=== PATIENT | male | born 1965 | race Caucasian/White ===

== ENCOUNTER 2025-03-19 08:57 | Emergency (ER) | payer OTHER ==
[2025-03-19 09:05] VITALS: RESP 18
--- NOTE | 2025-03-19 09:18 | ED ---
General Adult HPI - General Chief complaint: Abdominal Pain Stated complaint: abd pain Time Seen by Provider: 03/19/25 09:00 Source: patient, family, RN notes reviewed, old records reviewed Mode of arrival: ambulatory Limitations: no limitations - History of Present Illness Initial comments: This is a 59-year-old male who presents to the emergency department stating at 1:00 in the morning he woke up with right lower quadrant and right flank abdominal pain. Patient states it was not there when he went to bed. Patient states he was nauseous earlier but no longer. Patient denies any diarrhea. Patient states he feels constipated. Patient denies any fever chills or cough. Patient denies any hematuria or dysuria. Patient states he feels like he has urgency he in the sense he needs to go but cannot go very much. Patient states he has never had any prostate problems until this point. - Related Data Previous Rx's Medication Instructions Recorded Ketorolac [Toradol] 10 mg PO Q8HR #15 tab 03/19/25 Tamsulosin [Flomax] 0.4 mg PO DAILY #10 cap 03/19/25 Allergies Allergy/AdvReac Type Severity Reaction Status Date / Time No Known Allergies Allergy Verified 03/19/25 09:05 Review of Systems ROS Statement: Those systems with pertinent positive or pertinent negative responses have been documented in the HPI. ROS Other: All systems not noted in ROS Statement are negative. Past Medical History Past Medical History: Hypertension Past Surgical History: Cholecystectomy Past Psychological History: No Psychological Hx Reported Smoking Status: Never smoker Past Alcohol Use History: Occasional Past Drug Use History: None Reported General Exam - General Exam Comments Initial Comments: GENERAL: Patient is well-developed and well-nourished. Patient is nontoxic and well- hydrated and is in mild distress. ENT: Neck is soft and supple. No significant lymphadenopathy is noted. Oropharynx is clear. Moist mucous membranes. Neck has full range of motion without eliciting any pain. EYES: The sclera were anicteric and conjunctiva were pink and moist. Extraocular movements were intact and pupils were equal round and reactive to light. Eyelids were unremarkable. PULMONARY: Unlabored respirations. Good breath sounds bilaterally. No audible rales rhonc hi or wheezing was noted. CARDIOVASCULAR: There is a regular rate and rhythm without any murmurs gallops or rubs. ABDOMEN: Patient has right lower quadrant abdominal tenderness and a little right flank tenderness however there is no rebound SKIN: Skin is clear with no lesions or rashes and otherwise unremarkable. NEUROLOGIC: Patient is alert and oriented x3. Cranial nerves II through XII are grossly intact. Motor and sensory are also intact. Normal speech, volume and content. Symmetrical smile. MUSCULOSKELETAL: Normal extremities with adequate strength and full range of motion. No lower extremity swelling or edema. No calf tenderness. LYMPHATICS: No significant lymphadenopathy is noted PSYCHIATRIC: Normal psychiatric evaluation. Limitations: no limitations Course Vital Signs 03/19/25 03/19/25 09:03 09:13 Temperature 97.9 F 99.2 F Pulse Rate 64 Respiratory 18 Rate Blood Pressure 226/95 O2 Sat by Pulse 98 Oximetry Medical Decision Making - Medical Decision Making Was pt. sent in by a medical professional or institution (, ANGE, BARBERING TEACHER, urgent care, hospital, or detention...) When possible be specific @ -No Did you speak to anyone other than the patient for history (EMS, parent, family, police, friend...)? What history was obtained from this source @ -No Did you review nursing and triage notes (agree or disagree)? Why? @ -I reviewed and agree with nursing and triage notes Were old charts reviewed (outside hosp., previous admission, EMS record, old EKG, old radiological studies, urgent care reports/EKG's, detention records)? Report findings @ -No old charts were reviewed Differential Diagnosis? @ -Differential Abdominal Pain Men: Appendicitis, cholecystitis, diverticulosis, ischemic bowel, pancreatitis, hepatitis, UTI, gastroenteritis, AAA, incarcerated hernia, bowel obstruction, constipation, inflammatory bowel, hepatitis, peptic ulcer disease, splenic infarction, perforated viscus, testicular torsion, this is not meant to be an all-inclusive list EKG interpreted by me (3pts min.). @ -As above X-rays interpreted by me (1pt min.). @ -None done CT interpreted by me (1pt min.). @ -CAT scan shows a 3 to 4 mm right UVJ stone with hydronephrosis U/S interpreted by me (1pt. min.). @ -None done What testing was considered but not performed or refused? (CT, X-rays, U/S, labs)? Why? @ -None What meds were considered but not given or refused? Why? @ -None Did you discuss the management of the patient with other professionals (professionals i.e. , PA, BARBERING TEACHER, lab, RT, psych nurse, group social worker, digital production artist, teacher, chief operating officer, caser shoe parts)? Give summary @ -No Was smoking cessation discussed for >3mins.? @ -No Was critical care preformed (if so, how long)? @ -No Were there social determinants of health that impacted care today? How? (Homelessness, low income, unemployed, alcoholism, drug addiction, transportation, low edu. Level, literacy, decrease access to med. care, correction, rehab)? @ -No Was there de-escalation of care discussed even if they declined (Discuss DNR or withdrawal of care, Hospice)? DNR status @ -No What co-morbidities impacted this encounter? (DM, HTN, Smoking, COPD, CAD, Cancer, CVA, ARF, Chemo, Hep., AIDS, mental health diagnosis, sleep apnea, morbid obesity)? @ -None Was patient admitted / discharged? Hospital course, mention meds given and route, prescriptions, significant lab abnormalities, going to OR and other pertinent info. @ -Patient was given Toradol in the emergency department and was feeling considerably better. Patient will be discharged home with diagnosis of kidney stone with some pain medications. Undiagnosed new problem with uncertain prognosis? @ -No Drug Therapy requiring intensive monitoring for toxicity (Heparin, Nitro, Insulin, Cardizem)? @ -No Were any procedures done? @ -No Diagnosis/symptom? @ -Kidney Acute, or Chronic, or Acute on Chronic? @ -Acute Uncomplicated (without systemic symptoms) or Complicated (systemic symptoms)? @ -Complicated Side effects of treatment? @ -No Exacerbation, Progression, or Severe Exacerbation? @ -No Poses a threat to life or bodily function? How? (Chest pain, [place], [place], pneumonia, PE, COPD, DKA, ARF, appy, cholecystitis, CVA, Diverticulitis, Homicidal, Suicidal, threat to staff... and all critical care pts) @ -No - Lab Data Result diagrams: 03/19/25 09:28 03/19/25 09:28 Lab Results 03/19/25 03/19/25 03/19/25 Range/Units 09:28 09:28 09:28 WBC 13.30 H (4.50-10.00) 10*3/uL RBC 5.57 (4.40-5.60) 10*6/uL Hgb 16.7 (13.0-17.0) g/dL Hct 47.3 (39.6-50.0) % MCV 84.9 (80.0-97.0) fL MCH 30.0 (27.0-32.0) pg MCHC 35.3 (32.0-37.0) g/dL Plt Count 259 (140-440) 10*3/uL MPV 9.8 (9.5-12.2) fL Immature Gran % (Auto) 0.2 % Neutrophils % 92.1 % Lymphocytes % 4.3 % Monocytes % 3.2 % Eosinophils % 0.0 % Basophils % 0.2 % Immature Gran # 0.02 (0.00-0.04) 10*3/uL Neutrophils # 12.27 H (1.80-7.70) 10*3/uL Lymphocytes # 0.57 L (0.90-5.00) 10*3/uL Monocytes # 0.42 (0.20-1.00) 10*3/uL Eosinophils # 0.00 L (0.04-0.35) 10*3/uL Basophils # 0.02 (0.00-0.10) 10*3/uL Sodium 136 L (137-145) mmol/L Potassium 3.9 (3.5-5.1) mmol/L Chloride 101 (98-107) mmol/L Carbon Dioxide 23 (22-30) mmol/L Anion Gap 12 mmol/L BUN 24 H (9-20) mg/dL Creatinine 0.95 (0.66-1.25) mg/dL Est GFR (CKD-EPI)AfAm >90 (>60 ml/min/1.73 sqM) Est GFR (CKD-EPI)NonAf 88 (>60 ml/min/1.73 sqM) Glucose 164 H (74-99) mg/dL Calcium 9.7 (8.4-10.2) mg/dL Total Bilirubin 0.6 (0.2-1.3) mg/dL AST 28 (17-59) U/L ALT 21 (4-49) U/L Alkaline Phosphatase 75 (38-126) U/L Total Protein 7.0 (6.3-8.2) g/dL Albumin 4.5 (3.5-5.0) g/dL Amylase 45 (30-110) U/L Lipase 87 (23-300) U/L Urine Color Yellow Urine Appearance Clear (Clear) Urine pH 6.0 (5.0-8.0) Ur Specific [place] 1.027 (1.001-1.035) Urine Protein 1+ H (Negative) Urine Glucose (UA) 3+ H (Negative) Urine Ketones Negative (Negative) Urine Blood Small H (Negative) Urine Nitrite Negative (Negative) Urine Bilirubin Negative (Negative) Urine Urobilinogen <2.0 (<2.0) mg/dL Ur Leukocyte Esterase Negative (Negative) Urine RBC 33 H (0-5) /hpf Urine WBC 2 (0-5) /hpf Ur Squamous Epith Cells <1 (0-4) /hpf Urine Mucus Occasional H (None) /hpf Disposition Clinical Impression: Kidney stone Disposition: HOME SELF-CARE Condition: Good Prescriptions: Tamsulosin [Flomax] 0.4 mg PO DAILY #10 cap Ketorolac [Toradol] 10 mg PO Q8HR #15 tab Is patient prescribed a controlled substance at d/c from ED?: No Referrals: Nonstaff,Physician [Primary Care Provider] - 1-2 days Deon Guerrero MD [STAFF PHYSICIAN] - 1-2 days Time of Disposition: 10:41
[2025-03-19] MEDS: KETOROLAC 15 MG/ML 1 ML VIAL IVP STA (09:29)
[2025-03-19] MEDS: LACTATED RINGERS 1,000 ML IV ONE (09:30)
[2025-03-19 09:38] LABS: Basophils # (A) 0.02 10*3/uL (0.00-0.10); Basophils % (A) 0.2 %; Eosinophils # (A) 0.00 10*3/uL (0.04-0.35); Eosinophils % (A) 0.0 %; HCT 47.3 % (39.6-50.0); HGB 16.7 g/dL (13.0-17.0); Lymphocytes # (A) 0.57 10*3/uL (0.90-5.00); Lymphocytes % (A) 4.3 %; MCH 30.0 pg (27.0-32.0); MCHC 35.3 g/dL (32.0-37.0); MCV 84.9 fL (80.0-97.0); Monocytes # (A) 0.42 10*3/uL (0.20-1.00); Monocytes % (A) 3.2 %; Neutrophils # (A) 12.27 10*3/uL (1.80-7.70); Neutrophils % (A) 92.1 %; Platelet Count 259 10*3/uL (140-440); RBC 5.57 10*6/uL (4.40-5.60); RDW 12.6 % (11.5-14.5); WBC 13.30 10*3/uL (4.50-10.00)
[2025-03-19 09:53] LABS: Bilirubin,Urine Negative (Negative); Blood,Urine Small (Negative); Color,Urine Yellow; Glucose,Urine (UA) 3+ (Negative); Ketones,Urine Negative (Negative); Leukocyte Esterase,Urine Negative (Negative); Mucus,Urine Occasional /hpf; Nitrite,Urine Negative (Negative); PH, Urine 6.0 (5.0-8.0); Protein,Urine 1+ (Negative); RBC,Urine 33 /hpf (0-5); Specific Gravity,Urine 1.027 (1.001-1.035); Squamous Epithelial Cell,Urine <1 /hpf (0-4); Urobilinogen,Urine <2.0 mg/dL (<2.0); WBC,Urine 2 /hpf (0-5)
[2025-03-19 09:54] LABS: ALT 21 U/L (4-49); AST 28 U/L (17-59); African American GFR (CKD) >90 (>60 ml/min/1.73 sqM); Albumin 4.5 g/dL (3.5-5.0); Alkaline Phosphatase 75 U/L (38-126); Amylase 45 U/L (30-110); Anion Gap 12 mmol/L; Blood Urea Nitrogen 24 mg/dL (9-20); Calcium 9.7 mg/dL (8.4-10.2); Carbon Dioxide 23 mmol/L (22-30); Chloride 101 mmol/L (98-107); Glucose 164 mg/dL (74-99); Lipase 87 U/L (23-300); Non-African American GFR(CKD) 88 (>60 ml/min/1.73 sqM); Potassium 3.9 mmol/L (3.5-5.1); Sodium 136 mmol/L (137-145); Total Protein 7.0 g/dL (6.3-8.2)
--- NOTE | 2025-03-19 10:00 | CT ---
EXAMINATION TYPE: CT abdomen pelvis wo con DATE OF EXAM: 03/19/2025 COMPARISON: None CLINICAL INDICATION: Male, 59 years old with history of abdominal pain; PHH, RLQ and RT side flank pa in since 1am. TECHNIQUE: CT scan of the abdomen and pelvis is performed without oral or IV contrast. CT DLP: 980.[address] CTDI: mGy Automated exposure control for dose reduction was used. FINDINGS: Within the limitations of a non-contrast study, the following observations are made. The lungs are clear. There is surgical absence of the gallbladder. There is no biliary ductal dilatation. There is no organomegaly of the liver, pancreas, spleen or adrenal glands. There is marked right hydronephrosis and hydroureter with marked fluid in the perirenal space seconda ry to an obstructing 3 to 4 mm right UVJ calculus. The left kidney is unremarkable.. The caliber of the abdominal aorta is normal and there is no retroperitoneal adenopathy or hemorrhage . The bowel loops are normal in caliber is no evidence of obstruction. No inflammatory changes are iden tified in the mesentery and there is no free intraperitoneal air or fluid. There is no pelvic mass, free fluid, abscess or adenopathy. There is mild prostatic hypertrophy. The osseous structures and soft tissues are unremarkable. IMPRESSION: 3 to 4 mm obstructing right UVJ calcification resulting in marked right hydronephrosis and hydrourete r. [facility], Workstation: [id number], 03/19/2025 9:58 AM
[2025-03-19] MEDS: ACET/COD 300 MG/30 MG STARTER PACK 6 TAB BTL PO STA (10:50)
[2025-03-19 10:56] VITALS: BP 124/76; PULSE 78; TEMP 97.8
== END 2025-03-19 10:56 | disposition home or self-care (01) ==
LOC: EC 08:57
DX: N20.0 Calculus of kidney (principal)
CPT/HCPCS: 36415; 80053; 82150; 83690; 85025; 81001; 74176; 99284; 96374; 96361; J1885